=== PATIENT | female | born 1995 | race Caucasian/White ===

== ENCOUNTER → 2023-03-26 | Outpatient (CLI) | payer OTHER | LOC: M RAD 12:54 | PROVIDERS: ATTEND Registered Nurse | DX: N92.6 Irregular menstruation, unspecified (principal) ==

== ENCOUNTER → 2023-06-18 | Outpatient (CLI) | payer OTHER | LOC: M PLALAB 13:39 | PROVIDERS: ATTEND Nurse Practitioner Family | DX: N92.6 Irregular menstruation, unspecified (principal) ==

== ENCOUNTER → 2023-09-25 | Outpatient (REF) | payer OTHER | LOC: M SFHCWAGY 13:37 | PROVIDERS: ATTEND Nurse Practitioner Family | DX: Z12.4 Encounter for screening for malignant neoplasm of cervix (principal); Z11.51 Encounter for screening for human papillomavirus (HPV) ==

== ENCOUNTER → 2023-11-25 | Outpatient (CLI) | payer OTHER ==
[2023-11-25 11:29] LABS: HEMOGLOBIN A1c 5.1 % (4.0-6.0)
== END ==
LOC: M PLALAB 07:34
PROVIDERS: ATTEND Registered Nurse
DX: R73.03 Prediabetes (principal)

== ENCOUNTER → 2024-05-13 | Outpatient (CLI) | payer OTHER | LOC: M PLALAB 12:06 | PROVIDERS: ATTEND Advanced Practice Midwife | DX: O20.0 Threatened abortion (principal); Z3A.00 Weeks of gestation of pregnancy not specified ==

== ENCOUNTER → 2024-05-15 | Outpatient (CLI) | payer OTHER | LOC: M PLALAB 11:38 | PROVIDERS: ATTEND Advanced Practice Midwife | DX: O20.0 Threatened abortion (principal) ==

== ENCOUNTER → 2024-05-22 | Outpatient (CLI) | payer OTHER | LOC: M PLALAB 10:51 | PROVIDERS: ATTEND Advanced Practice Midwife | DX: O20.0 Threatened abortion (principal) ==

== ENCOUNTER → 2024-05-26 | Outpatient (CLI) | payer OTHER ==
[2024-05-26 14:11] LABS: HEMOGLOBIN 13.4 g/dl (12.0-15.5); MEAN CORPUSCULAR HGB CONC 32.7 g/dl (32.0-36.5); MEAN CORPUSCULAR VOLUME 88.7 fl (80.0-96.0); PLATELET COUNT, AUTOMATED 244 10^3/uL (150-450); RED BLOOD COUNT 4.62 10^6/uL (4.00-5.40); WHITE BLOOD COUNT 12.4 10^3/uL (4.0-10.0)
[2024-05-26 14:29] LABS: TOTAL PROTEIN,RANDOM URINE 11.1 MG/DL (0.0-14.0)
[2024-05-26 14:31] LABS: URIC ACID 3.7 MG/DL (3.1-7.8)
[2024-05-26 14:33] LABS: LDH LACTATE DEHYDROGENASE 143 U/L (120-246)
[2024-05-26 14:34] LABS: ALT/SGPT 28 U/L (7.0-40); AST/SGOT 11 U/L (<34); BILIRUBIN,TOTAL 0.3 MG/DL (0.3-1.2); CREATININE FOR GFR 0.45 MG/DL (0.55-1.30); CREATININE,RANDOM URINE 121.8 MG/DL; GLOMERULAR FILTRATION RATE > 60.0 (>60)
[2024-05-26 14:37] LABS: HEMOGLOBIN A1c 4.5 % (4.0-6.0)
[2024-05-26 15:06] LABS: HIV 1&2 SCREEN NEGATIVE (NEGATIVE)
[2024-05-26 15:14] LABS: HEPATITIS C VIRUS ABY INDEX 0.02 INDEX (<0.8)
[2024-05-26 15:26] LABS: Trichomonas vaginalis (AMP) NOT DETECTED (NEGATIVE)
[2024-05-26 15:49] LABS: GC DNA AMPLIFICATION NEGATIVE (NEGATIVE)
== END ==
LOC: M PLALAB 09:31
PROVIDERS: ATTEND Nurse Practitioner Family
DX: Z34.01 Encounter for supervision of normal first pregnancy, first trimester (principal); Z3A.00 Weeks of gestation of pregnancy not specified; E28.2 Polycystic ovarian syndrome

== ENCOUNTER → 2024-05-26 | Outpatient (REF) | payer OTHER | LOC: M PLALAB 09:12 | PROVIDERS: ATTEND Nurse Practitioner Family | DX: Z34.01 Encounter for supervision of normal first pregnancy, first trimester (principal); E28.2 Polycystic ovarian syndrome; Z3A.00 Weeks of gestation of pregnancy not specified; Z53.9 Procedure and treatment not carried out, unspecified reason ==

== ENCOUNTER → 2024-06-10 | Outpatient (CLI) | payer OTHER | LOC: M PLALAB 09:38 | PROVIDERS: ATTEND Nurse Practitioner Family | DX: Z34.01 Encounter for supervision of normal first pregnancy, first trimester (principal); Z31.430 Encounter of female for testing for genetic disease carrier status for procreative management ==

== ENCOUNTER 2024-09-22 14:12 | Observation (INO) | payer OTHER ==
[~2024-09-22] VITALS: Ht 154.9 cm; Wt 98.1 kg
[2024-09-22] VITALS (9 sets, daily range): BP systolic 111–145; BP diastolic 56–83; TEMP 98.5; O2SAT 97
[2024-09-22] MEDS ORDERED: PRENTAB9 PO (14:39)
[2024-09-22] MEDS ORDERED: HOME MED LIST COMPLETE! XX SCH (14:40)
[2024-09-22 17:39] LABS: PLATELET COUNT, AUTOMATED 281 10^3/uL (150-450)
[2024-09-22] MEDS ORDERED: [UNRECOGNIZED DRUG - OTHER] As Ordered ONE (17:50)
[2024-09-22] MEDS ORDERED: PHENYLephrine 500MCG 5ML (100MCG/ML) SYRINGE As Ordered ONE (18:34)
[2024-09-22] MEDS: BETAMETHASONE SOLUSPAN 6 MG/ML 5 ML VIAL IM SCH (20:09)
[2024-09-23 02:06] VITALS: BP 121/70
[2024-09-23 06:02] VITALS: BP 104/56
[2024-09-23] MEDS: BETAMETHASONE SOLUSPAN 6 MG/ML 5 ML VIAL IM SCH (08:51)
== END 2024-09-23 09:07 | disposition home or self-care (01) ==
LOC: M LDO 14:12 → M LDI 17:16
PROVIDERS: ADMIT Specialist; ATTEND Specialist
DX: O34.32 Maternal care for cervical incompetence, second trimester (principal); Z3A.26 26 weeks gestation of pregnancy
CPT/HCPCS: 59025; 59320; 85027; 86850; 86900; 86901; 96372; G0463; J0702; J2371; J2401

== ENCOUNTER → 2024-09-22 | Outpatient (CLI) | payer OTHER ==
[~2024-09-22] MED LIST: PRENTAB9 PO
== END ==
LOC: M WHC 12:06
PROVIDERS: ATTEND Obstetrics & Gynecology
DX: Z36.2 Encounter for other antenatal screening follow-up (principal); Z3A.26 26 weeks gestation of pregnancy

== ENCOUNTER → 2024-10-07 | Outpatient (CLI) | payer OTHER ==
[2024-10-07 13:39] LABS: PLATELET COUNT, AUTOMATED 279 10^3/uL (150-450)
[2024-10-07 13:43] LABS: GLUCOSE CHALLENGE TEST 1 HOUR 152 MG/DL (LESS THAN 140)
[2024-10-07 14:12] LABS: HIV 1&2 SCREEN NEGATIVE (NEGATIVE)
[2024-10-07 14:20] LABS: HEPATITIS C VIRUS ABY INDEX < 0.02 INDEX (<0.8)
[2024-10-07 14:58] LABS: Trichomonas vaginalis (AMP) NOT DETECTED (NEGATIVE)
[2024-10-07 15:21] LABS: GC DNA AMPLIFICATION NEGATIVE (NEGATIVE)
== END ==
LOC: M PLALAB 09:18
PROVIDERS: ATTEND Obstetrics & Gynecology
DX: Z33.1 Pregnant state, incidental (principal)

== ENCOUNTER → 2024-10-16 | Outpatient (CLI) | payer OTHER | LOC: M LAB 06:38 | PROVIDERS: ATTEND Obstetrics & Gynecology | DX: O99.810 Abnormal glucose complicating pregnancy (principal); Z3A.29 29 weeks gestation of pregnancy ==

== ENCOUNTER → 2024-11-18 | Outpatient (CLI) | payer OTHER | LOC: M RAD 13:45 | PROVIDERS: ATTEND Specialist | DX: Z34.03 Encounter for supervision of normal first pregnancy, third trimester (principal); Z3A.34 34 weeks gestation of pregnancy ==

== ENCOUNTER → 2024-11-19 | Outpatient (CLI) | payer OTHER ==
[2024-11-19 14:22] LABS: LDH LACTATE DEHYDROGENASE 168 U/L (120-246)
[2024-11-19 14:23] LABS: ALT/SGPT 9 U/L (7.0-40); AST/SGOT 13 U/L (<34); CREATININE FOR GFR 0.47 MG/DL (0.55-1.30); GLOMERULAR FILTRATION RATE > 90.0 (>60)
[2024-11-19 14:39] LABS: TOTAL PROTEIN,RANDOM URINE 28.7 MG/DL (0.0-14.0)
[2024-11-19 14:43] LABS: PLATELET COUNT, AUTOMATED 228 10^3/uL (150-450)
== END ==
LOC: M PLALAB 10:18
PROVIDERS: ATTEND Student in an Organized Health Care Education/Training Program
DX: O16.9 Unspecified maternal hypertension, unspecified trimester (principal); Z3A.00 Weeks of gestation of pregnancy not specified

== ENCOUNTER 2024-11-21 21:28 | Outpatient (CLI) | payer OTHER ==
[~2024-11-21] VITALS: Ht 157.5 cm; Wt 109.9 kg
[2024-11-21 21:45] VITALS: BP 143/87
[2024-11-21 22:01] VITALS: BP 135/83
[2024-11-21 22:07] LABS: PLATELET COUNT, AUTOMATED 249 10^3/uL (150-450)
[2024-11-21 22:16] VITALS: BP 145/84
[2024-11-21 22:40] LABS: LDH LACTATE DEHYDROGENASE 170 U/L (120-246)
[2024-11-21 22:41] LABS: ALT/SGPT 12 U/L (7.0-40); AST/SGOT 17 U/L (<34); CREATININE FOR GFR 0.43 MG/DL (0.55-1.30); GLOMERULAR FILTRATION RATE > 90.0 (>60)
== END 2024-11-21 22:55 | disposition home or self-care (01) ==
LOC: M LDO 21:28
PROVIDERS: ATTEND Obstetrics & Gynecology
DX: O14.93 Unspecified pre-eclampsia, third trimester (principal); Z3A.34 34 weeks gestation of pregnancy
CPT/HCPCS: 36415; 59025; 82247; 83615; 84450; 84460; 84550; 85027; G0463

== ENCOUNTER → 2024-11-27 | Outpatient (CLI) | payer OTHER ==
[2024-11-27 12:03] LABS: PLATELET COUNT, AUTOMATED 212 10^3/uL (150-450)
[2024-11-27 12:07] LABS: LDH LACTATE DEHYDROGENASE 177 U/L (120-246)
[2024-11-27 12:08] LABS: ALT/SGPT 11 U/L (7.0-40); AST/SGOT 15 U/L (<34); CREATININE FOR GFR 0.50 MG/DL (0.55-1.30); GLOMERULAR FILTRATION RATE > 90.0 (>60)
[2024-11-27 12:28] LABS: TOTAL PROTEIN,RANDOM URINE 17.8 MG/DL (0.0-14.0)
== END ==
LOC: M PLALAB 08:46
PROVIDERS: ATTEND Specialist
DX: Z34.03 Encounter for supervision of normal first pregnancy, third trimester (principal)